=== PATIENT | male | born 1955 | race Caucasian/White ===

== ENCOUNTER → 2023-09-29 | Outpatient (CLI) | payer MEDICARE, OTHER ==
[2023-09-29 11:55] LABS: Protein/Creatinine Ratio,Urine 1.5
[2023-09-29 15:09] LABS: HGB 11.1 g/dL (13.0-17.0); MCH 28.6 pg (27.0-32.0); MCHC 30.8 g/dL (32.0-37.0); MCV 92.8 FL (80.0-97.0); NRBC Per 100 WBC 0 X 10*3/uL (0.00-0.01); Platelet Count 314 X 10*3/uL (140-440); RBC 3.88 X 10*6/uL (4.40-5.60); RDW 16.5 % (11.5-14.5); WBC 7.82 X 10*3/uL (4.50-10.00)
[2023-09-29 15:27] LABS: Appearance,Urine Clear (Clear); Bilirubin,Urine Negative (Negative); Blood,Urine Negative (Negative); Color,Urine Yellow (Yellow); Ketones,Urine Negative (Negative); Nitrite,Urine Negative (Negative); Specific Gravity,Urine 1.017 (1.001-1.030); Urobilinogen,Urine 0.2 E.U./DL
[2023-09-29 15:30] LABS: Bacteria,Urine None Seen (None Seen)
[2023-09-29 15:39] LABS: Magnesium 1.7 mg/dL (1.5-2.4); Phosphorus 3.7 mg/dL (2.4-5.1)
[2023-09-29 15:48] LABS: ALT 12 U/L (10-49); AST 14 U/L (14-35); Albumin 4.4 g/dL (3.8-4.9); Albumin/Globulin Ratio 1.83 Ratio (1.60-3.17); Alkaline Phosphatase 132 U/L (41-126); BUN/Creat Ratio 13.44 Ratio (12.00-20.00); Blood Urea Nitrogen 36.3 mg/dL (9.0-27.0); Calcium 9.6 mg/dL (8.7-10.3); Carbon Dioxide 16.7 mmol/L (21.6-31.8); Chloride 108 mmol/L (96-109); Globulin 2.4 g/dL (1.6-3.3); Glucose 256 mg/dL (70-110); Potassium 6.8 mmol/L (3.5-5.5); Sodium 137 mmol/L (135-145); Total Bilirubin <0.2 mg/dL (0.3-1.2); Total Protein 6.8 g/dL (6.2-8.2)
[2023-09-29 19:04] LABS: Urine Creatinine 65.2 mg/dL (39.0-259.0)
== END | disposition home or self-care (01) ==
LOC: LABWHC1 10:36
PROVIDERS: ATTEND Nurse Practitioner Acute Care
DX: N18.32 Chronic kidney disease, stage 3b (principal)
CPT/HCPCS: 36415; 80053; 81001; 82043; 82570; 83735; 84100; 84156; 85027

== ENCOUNTER → 2023-10-03 | Outpatient (CLI) | payer MEDICARE, OTHER ==
[2023-10-03 17:44] LABS: BUN/Creat Ratio 11.77 Ratio (12.00-20.00); Blood Urea Nitrogen 30.6 mg/dL (9.0-27.0); Carbon Dioxide 18.5 mmol/L (21.6-31.8); Chloride 106 mmol/L (96-109); Glucose 222 mg/dL (70-110); Sodium 139 mmol/L (135-145)
== END | disposition home or self-care (01) ==
LOC: LABWHC1 09:36
PROVIDERS: ATTEND Nurse Practitioner Acute Care
DX: N18.32 Chronic kidney disease, stage 3b (principal)
CPT/HCPCS: 36415; 80048

== ENCOUNTER → 2023-11-11 | Outpatient (CLI) | payer MEDICARE, OTHER ==
[2023-11-11 15:49] LABS: Appearance,Urine Clear (Clear); Bilirubin,Urine Negative (Negative); Blood,Urine Negative (Negative); Color,Urine Yellow (Yellow); Ketones,Urine Negative (Negative); Nitrite,Urine Negative (Negative); Specific Gravity,Urine 1.017 (1.001-1.030); Urobilinogen,Urine 0.2 E.U./DL
[2023-11-11 15:55] LABS: Bacteria,Urine None Seen (None Seen)
[2023-11-11 16:02] LABS: Magnesium 1.6 mg/dL (1.5-2.4); Phosphorus 3.1 mg/dL (2.4-5.1)
[2023-11-11 16:03] LABS: % Iron Saturation 13.64 (15.00-50.00); ALT 11 U/L (10-49); AST 11 U/L (14-35); Albumin/Globulin Ratio 1.82 Ratio (1.60-3.17); Alkaline Phosphatase 105 U/L (41-126); BUN/Creat Ratio 12.73 Ratio (12.00-20.00); Calcium 8.6 mg/dL (8.7-10.3); Carbon Dioxide 18.3 mmol/L (21.6-31.8); Chloride 108 mmol/L (96-109); Globulin 2.2 g/dL (1.6-3.3); Glucose 263 mg/dL (70-110); Iron 33 UG/DL (65-175); Potassium 4.1 mmol/L (3.5-5.5); Sodium 142 mmol/L (135-145); Total Bilirubin 0.2 mg/dL (0.3-1.2); Total Iron Binding Capacity 242 UG/DL (228-460); Total Protein 6.2 g/dL (6.2-8.2); Uric Acid 5.1 mg/dL (3.7-8.7)
[2023-11-11 16:25] LABS: HCT 25.7 % (39.6-50.0); HGB 8.2 g/dL (13.0-17.0); MCH 28.4 pg (27.0-32.0); MCHC 31.9 g/dL (32.0-37.0); MCV 88.9 FL (80.0-97.0); Mean Platelet Volume 10.1 FL (9.5-12.2); NRBC Per 100 WBC 0 X 10*3/uL (0.00-0.01); Platelet Count 239 X 10*3/uL (140-440); RBC 2.89 X 10*6/uL (4.40-5.60); RDW 17.1 % (11.5-14.5)
[2023-11-11 21:41] LABS: Urine Creatinine 86.1 mg/dL (39.0-259.0)
== END ==
LOC: LABWHC1 10:19
PROVIDERS: ATTEND Internal Medicine
DX: N18.32 Chronic kidney disease, stage 3b (principal); D64.9 Anemia, unspecified; N39.0 Urinary tract infection, site not specified; E55.9 Vitamin D deficiency, unspecified; N25.81 Secondary hyperparathyroidism of renal origin; M10.9 Gout, unspecified
CPT/HCPCS: 36415; 80053; 81001; 82043; 82306; 82570; 82728; 83540; 83550; 83735; 83970; 84100; 84550; 85027

== ENCOUNTER 2024-01-12 10:49 | Inpatient (IN) | payer MEDICARE, OTHER ==
[2024-01-12] MEDS: SODIUM CHLORIDE 0.9% 1,000 ML IV ONE ×2 (11:53→15:23)
[2024-01-12] MEDS: HEPARIN SODIUM,PORCINE 10,000 UNIT in SODIUM CHLORIDE 0.9% 1,000 ML IRRIGATION ONE (11:53)
[2024-01-12] MEDS: HEPARIN SODIUM,PORCINE (1 ML) 2,500 UNIT in SODIUM CHLORIDE 0.9% 250 ML IRRIGATION ONE (11:53)
[2024-01-12] MEDS: fentaNYL (PF) 50 MCG/ML 2 ML AMP IVP ONE (12:20)
[2024-01-12] MEDS: MIDAZOLAM 2 MG/2 ML VIAL IVP ONE (12:20)
[2024-01-12] MEDS: LIDOCAINE 1% INJ 10MG/ML (20 ML MDV) SQ ONE (12:25)
[2024-01-12] MEDS: VERAPAMIL SYRINGE (5 MG/10 ML) INTRAARTER ONE (12:26)
[2024-01-12] MEDS: HEPARIN SODIUM 1,000 UN/ML (10ML VL) IVP ONE ×3 (12:31→12:53)
[2024-01-12] MEDS: IOPAMIDOL-370 100ML BTL INJ ONE (13:13)
[2024-01-12] MEDS ORDERED: NITROGLYCERIN SL TABS 0.4 MG TAB SUBLINGUAL PRN (13:34)
[2024-01-12] MEDS ORDERED: MAG HYDROX/AL HYDROX/SIMETH 30 ML CUP PO PRN (13:34)
[2024-01-12] MEDS ORDERED: ZOLPIDEM 5 MG TAB PO PRN (13:34)
[2024-01-12] MEDS ORDERED: RX INFO: IV CONTRAST WAS GIVEN 1 EACH MISC MISCELLANE PRN (13:34)
[2024-01-12] MEDS ORDERED: ATROPINE SULFATE 0.1 MG/ML 10ML SYRINGE IV PRN (13:34)
--- NOTE | 2024-01-12 15:10 | P.PRCINT ---
Percutaneous Coronary Int. - Percutaneous Coronary Intervention Percutaneous Coronary Intervention: PROCEDURES PERFORMED: Right coronary angiography, ultrasound guided arterial access. PCI proximal to mid RCA with a 3.25 x 38mm Xience CHERY, post dilated with a 3.5mm NC balloon INDICATION: NSTEMI CONSENT:I have discussed the risks, benefits and alternative therapies for the above-mentioned procedure and for both sedation/analgesia as well as necessary blood product administration, if indicated, as they pertain to this patient. The patient has indicated understanding and acceptance of the risks and procedures discussed. PROCEDURE: After the risks, benefits and alternatives of the above mentioned procedure explained in detail with the patient, informed consent was obtained. Patient was taken to the catheterization lab and prepped and draped in usual fashion. Ultrasound guidance was used to assess for arterial access. 1% lidocaine was used to anesthetize the right radial artery. A 6-Czech sheath was placed in the right radial artery using modified Seldinger technique and ultrasound guidance. The decision was made to perform PCI of the RCA. A 6-Czech AL 0.5 guide was used to engage the RCA. A 0.014 BMW wire was advanced in the distal RCA. Intravascular ultrasound was performed which showed diffuse disease of the proximal and mid segment with reference vessel 3.25-3.5 mm. Predilation was performed with a 3.0 x 20 noncompliant balloon. Next a 3.25 x 38 mm drug- eluting stent was placed from the proximal to mid RCA. The stent was postdilated with a 3.5 mm noncompliant balloon. Repeat intravascular ultrasound showed excellent stent apposition with 0% residual stenosis. No dissection. Limited angiograms were performed secondary to contrastold. Final angiograms were performed. Preintervention there was 90% stenosis and ARABELLA-3 flow and postintervention there was less than 10% stenosis with ARABELLA 3 flow. The right radial sheath was removed and a TR band was placed with hemostasis achieved. The patient tolerated the procedure well. Patient was transported back to the post catheterization holding area in stable condition. Conscious Sedation: Patient was monitored under the direct supervision of myself for conscious sedation using Versed and fentanyl for a total duration of 39 minutes HEMODYNAMICS: Ao: 165/81 SELECTIVE CORONARY ARTERIOGRAPHY: LEFT MAIN: Not imaged, see separate report. LEFT ANTERIOR DESCENDING CORONARY ARTERY: Not imaged, see separate report. LEFT CIRCUMFLEX CORONARY ARTERY: Not imaged, see separate report. RIGHT CORONARY ARTERY: The right coronary artery is a large caliber vessel which gives off a PDA and PLV branch and is the dominant vessel. There is a long proximal and mid diffuse 40-50% stenosis with more focal 90% mid RCA stenosis. FINAL IMPRESSION: 1. CAD as described above with 90% RCA stenosis 2. S/p PCI proximal to mid RCA with a 3.25 x 38mm Xience CHERY, post dilated with a 3.5mm NC balloon PLAN: 1. Aggressive risk factor modification per most recent ACC/AHA guidelines. 2. Continue dual antiplatelets with aspirin and Plavix for 12 months
[2024-01-12] MEDS: hydrALAZINE HCL 25 MG TAB PO SCH (15:38)
[2024-01-12] MEDS: hydrALAZINE HCL 20 MG/ML 1 ML VIAL IVP SCH (18:00)
[2024-01-12] MEDS: SODIUM CHLORIDE 0.9% 1,000 ML in EMPTY BAG 1 BAG IV SCH (18:00)
[2024-01-12] MEDS: FUROSEMIDE 10 MG/ML 4 ML VIAL IV SCH (19:51)
[2024-01-12] MEDS: ATORVASTATIN 80 MG TAB PO SCH (19:51)
[2024-01-12] MEDS: METOPROLOL TARTRATE 25 MG TAB PO SCH (19:51)
[2024-01-13] MEDS: ASPIRIN 81 MG PO SCH (07:47)
[2024-01-13] MEDS: CLOPIDOGREL 75 MG TAB PO SCH (07:47)
[2024-01-13 07:52] VITALS: RESP 16
[2024-01-13 08:29] LABS: Anisocytosis Slight; HCT 30.5 % (39.0-53.0); HGB 9.7 gm/dL (13.0-17.5); Hypochromasia Slight; MCH 28.3 pg (25.0-35.0); MCV 88.7 fL (80.0-100.0); Mean Platelet Volume 7.9; Platelet Count 297 k/uL (150-450); RBC 3.43 m/uL (4.30-5.90); RDW 18.3 % (11.5-15.5); WBC 13.3 k/uL (3.8-10.6)
[2024-01-13 08:40] LABS: African American GFR (CKD) 32 (>60 ml/min/1.73 sqM); Anion Gap 10 mmol/L; Blood Urea Nitrogen 31 mg/dL (9-20); Calcium 8.9 mg/dL (8.4-10.2); Carbon Dioxide 24 mmol/L (22-30); Chloride 104 mmol/L (98-107); Glucose 247 mg/dL (74-99); Non-African American GFR(CKD) 28 (>60 ml/min/1.73 sqM); Potassium 3.2 mmol/L (3.5-5.1); Sodium 138 mmol/L (137-145)
[2024-01-13] MEDS: FUROSEMIDE 40 MG TAB PO SCH (08:47)
[2024-01-13 08:49] LABS: Band Neutrophils % 1 %; Eosinophils # (M) 0.13 k/uL (0-0.7); Lymphocytes # (M) 1.46 k/uL (1.0-4.8); Metamyelocytes # (M) 0.27 k/uL (0); Metamyelocytes % 2 %; Monocytes # (M) 3.06 k/uL (0-1.0); Myelocytes # (M) 0.13 k/uL (0); Myelocytes % 1 %; Neutrophils % (M) 62 %; Nucleated Red Blood Cells 0 /100 WBC (0-0); Total Cells Counted 200
[2024-01-13] MEDS: hydrALAZINE HCL 25 MG TAB PO SCH (08:49)
[2024-01-13] MEDS: POTASSIUM CHLORIDE ER 20 MEQ TAB.ER PO STA (08:49)
[2024-01-13 11:01] VITALS: BMI 23.6
--- NOTE | 2024-01-13 11:05 | P.NPCON ---
History of Present Illness - Reason for Consult chronic renal failure - History of Present Illness patient is a 68-year-old male with history of type 2 diabetes, hypertension, chronic kidney disease stage IIIB with baseline creatinine around 2 mg/dL secondary to diabetic kidney disease. Patient was admitted to [facility] with complaints of shortness of breath and ruled in for acute non-ST elevation CO. He was also anemic with hemoglobin of 6.9 g/dL. Patient had cardiac catheterization on 01/11/2024 which showed 60-70% diagonal stenosis along with 90% RCA stenosis and 60-70% stenosis in mid circumflex. Patient was transferred to [facility] for coronary stent placement off RCA. Serum creatinine was 2.68 mg/dL on 01/11/2024 at [facility]. Patient has been diuresed. Status post repeat cardiac catheterization and right coronary stent placement on 01/12/2024. Patient denies any significant complaints No shortness of breath or chest pain. He has had good urine output. Serum creatinine is 2.3 mg/dL today. Review of Systems as per HPI Past Medical History Past Medical History: Heart Failure, COPD, Diabetes Mellitus, Hearing Disorder / Deafness, Hyperlipidemia, Hypertension, Myocardial Infarction ([place]), Renal Disease, Respiratory Disorder, Skin Disorder Last Myocardial Infarction Date:: 01/08/2024 History of Any Multi-Drug Resistant Organisms: None Reported Past Surgical History: Heart Catheterization With Stent, Orthopedic Surgery Past Anesthesia/Blood Transfusion Reactions: No Reported Reaction Date of Last Stent Placement:: 01/12/2024 Past Psychological History: No Psychological Hx Reported Smoking Status: Current every day smoker Past Drug Use History: None Reported Medications and Allergies Home Medications Medication Instructions Recorded Confirmed Type Cholecalciferol [Vitamin D3 (25 50 mcg PO BID 01/12/24 01/12/24 History Mcg = 1000 Iu)] Dapagliflozin Propanediol [Farxiga] 5 mg PO DAILY 01/12/24 01/12/24 History Ferrous Sulfate [Feosol] 325 mg PO DAILY 01/12/24 01/12/24 History NIFEdipine XL [Procardia Xl] 30 mg PO DAILY 01/12/24 01/12/24 History NIFEdipine XL [Procardia Xl] 90 mg PO HS 01/12/24 01/12/24 History Patiromer Calcium Sorbitex 16.8 gm PO Q2D 01/12/24 01/12/24 History [Veltassa] calcitrioL 0.25 mcg PO FR 01/12/24 01/12/24 History cloNIDine 0.2 MG/24HR PATCH 1 patch TRANSDERM FR 01/12/24 01/12/24 History [Catapres-TTS] glipiZIDE XL [Glucotrol Xl] 10 mg PO HS 01/12/24 01/12/24 History hydrALAZINE HCL [Apresoline] 50 mg PO BID 01/12/24 01/12/24 History sitaGLIPtin [Januvia] 50 mg PO HS 01/12/24 01/12/24 History Allergies Allergy/AdvReac Type Severity Reaction Status Date / Time amoxicillin Allergy Unknown Verified 01/12/24 17:42 clindamycin Allergy Unknown Verified 01/12/24 17:42 codeine Allergy Unknown Verified 01/12/24 17:42 hydrochlorothiazide Allergy Unknown Verified 01/12/24 17:42 hydrocodone Allergy Unknown Verified 01/12/24 17:42 lisinopril Allergy Unknown Verified 01/12/24 17:42 oxycodone Allergy Unknown Verified 01/12/24 17:42 Penicillins Allergy Unknown Verified 01/12/24 17:42 Physical Exam Vitals: Vital Signs Temp Pulse Pulse Pulse Resp BP BP 01/13/24 07:50 98.3 F 89 16 152/71 01/13/24 04:00 97.8 F 81 15 153/61 01/12/24 23:21 98.0 F 80 16 173/70 01/12/24 19:57 185/75 01/12/24 19:38 98.2 F 92 16 204/73 01/12/24 18:01 85 14 189/118 01/12/24 17:14 98 F 76 14 211/44 01/12/24 16:19 97.8 F 76 14 210/80 01/12/24 15:45 70 16 181/81 01/12/24 15:06 72 16 196/86 01/12/24 14:36 70 16 178/89 01/12/24 14:06 72 16 176/77 01/12/24 13:51 76 16 203/90 01/12/24 13:36 74 16 198/73 01/12/24 13:21 70 20 185/92 01/12/24 11:41 97.6 F 16 193/73 BP Pulse Ox 11/01/24 07:50 96 01/13/24 04:00 98 01/12/24 23:21 93 L 01/12/24 19:57 01/12/24 19:38 93 L 01/12/24 18:01 91 L 01/12/24 17:14 92 L 01/12/24 16:19 92 L 01/12/24 15:45 96 01/12/24 15:06 95 01/12/24 14:36 96 01/12/24 14:06 95 01/12/24 13:51 94 L 01/12/24 13:36 94 L 01/12/24 13:21 95 01/12/24 11:41 201/97 95 Intake and Output 01/12/24 01/13/24 01/13/24 22:59 06:59 14:59 Intake Total 780 490 Output Total 0890 643 5165 Balance -920 -550 -510 Intake: IV 220 10 Invasive Line 1 10 10 Invasive Line 2 10 Oral 560 480 Output: Urine 0951 904 9304 Other: Voiding Method Urinal Urinal Weight 81.647 kg 79.1 kg patient is awake, comfortable, no acute distress. 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 Acute kidney injury ATN nonoliguric and cardiorenal syndrome. Improved with creatinine down from 2.6 on 01/11/2024 to 2.3 today. 2. Chronic kidney disease stage IIIB with baseline creatinine around 2 mg/dL secondary to diabetic kidney disease 3. Acute non-ST elevation CO status post cardiac catheterization on 01/11/2024 and right coronary artery stent placement on 01/12/2024 4. Acute hypoxic respiratory failure from CHF and acute CO with diuresis. 5. Hypertension with CK D stage III B 6. CK D mineral bone disorder maintained on Rocaltrol 7. Hypokalemia secondary to diuretics Plan: patient can be discharged from nephrology standpoint. Follow-up in the office in 1-2 weeks. Continue with current dose of diuretics. Check labs in 1-2 days post discharge. Replace potassiumnext Thank you for the consultation. We will continue to follow the patient with you during his hospitalization.
[2024-01-13 11:32] VITALS: BP 167/72; PULSE 73; TEMP 97.6
--- NOTE | 2024-01-13 12:38 | P.PN ---
Subjective HISTORY OF PRESENT ILLNESS: This is a 68-year-old male who was transferred from [facility] for non-STEMI. Patient underwent cardiac catheterization yesterday with Dr. Caldera with PCI to the proximal to mid RCA. Patient examined this morning at the bedside. Patient currently denies chest pain or pressure. He denies shortness of breath. Creatinine today is 2.33. Patient's baseline near 2.0. Hemoglobin today 9.7. Vital signs are stable. Telemetry reveals sinus mechanism. PHYSICAL EXAM: VITAL SIGNS: Reviewed. GENERAL: Well-developed in no acute distress. NECK: Supple. No JVD or thyromegaly LUNGS: Respirations even and unlabored. Lungs essentially clear to auscultation bilaterally. HEART: Regular rate and rhythm. S1 and S2 heard. Systolic murmur noted. EXTREMITIES: Normal range of motion. No clubbing or cyanosis. Peripheral pulses intact. No lower extremity edema ASSESSMENT: Non-STEMI, status post cardiac catheterization with PCI to the proximal to mid RCA Ischemic cardiomyopathy, 35% Acute on chronic kidney disease Anemia Acute on chronic heart failure with reduced EF, currently euvolemic Hyperlipidemia Mild to moderate mitral regurgitation PLAN: Continue dual antiplatelet therapy with aspirin and Plavix for 12 months Continue high intensity statin with Lipitor. DL goal less than 70. Discontinue IV Lasix. Begin oral Lasix 40 mg daily Add hydralazine 25 mg 3 times a day Patient unable to be on full cardiomyopathy medication secondary to acute kidney injury. Continue to monitor kidney function on outpatient basis to see if patient will be able to be initiated on cardiomyopathy medications. Patient may be discharged home today from a cardiac standpoint Nurse practitioner note has been reviewed by physician. Signing provider agrees with the documented findings, assessment, and plan of care documented by [employer] CLE[employer] M[employer] FEEDER as a scribe. Objective - Vital Signs Vital signs: Vital Signs Temp 97.6 F 01/13/24 11:31 Pulse 73 01/13/24 11:31 Resp 16 01/13/24 11:28 BP 167/72 01/13/24 11:31 Pulse Ox 96 01/13/24 11:28 FiO2 Intake & Output 01/12/24 01/13/24 01/13/24 18:59 06:59 18:59 Intake Total 1820 20 490 Output Total 2250 1000 Balance 1820 -2230 -510 Weight 81.647 kg 79.1 kg 79.1 kg Intake: IV 1020 20 10 Invasive Line 1 10 10 10 Invasive Line 2 10 10 Oral 800 480 Output: Urine 2250 1000 Other: Voiding Method Urinal - Labs CBC & Chem 7: 01/13/24 07:15 01/13/24 07:15 Labs: Abnormal Lab Results - Last 24 Hours (Table) 01/13/24 01/13/24 Range/Units 07:15 07:15 WBC 13.3 H (3.8-10.6) k/uL RBC 3.43 L (4.30-5.90) m/uL Hgb 9.7 L (13.0-17.5) gm/dL Hct 30.5 L (39.0-53.0) % RDW 18.3 H (11.5-15.5) % Neutrophils # (Manual) 8.30 H (1.3-7.7) k/uL Monocytes # (Manual) 3.06 H (0-1.0) k/uL Metamyelocytes # (Man) 0.27 H (0) k/uL Myelocytes # (Manual) 0.13 H (0) k/uL Potassium 3.2 L (3.5-5.1) mmol/L BUN 31 H (9-20) mg/dL Creatinine 2.33 H (0.66-1.25) mg/dL Glucose 247 H (74-99) mg/dL
--- NOTE | 2024-01-13 13:14 | P.HPIM ---
History of Present Illness H&P Date: 01/13/24 History of present illness; patient is a 68-year-old gentleman with past medical history significant for type 2 diabetes, hypertension, chronic kidney disease who was transferred from [facility] for acute NSTEMI. Patient had underwent cardiac cath showing 60-70% diagonal stenosis along with 90% RCA stenosis and 60-70% stenosis in mid circumflex at [facility]. Patient underwent PCI to the proximal to mid RCA. Patient was admitted to internal medicine service REVIEW OF SYSTEMS: CONSTITUTIONAL: No fever, no malaise, no fatigue. HEENT: No recent visual problems or hearing problems. Denied any sore throat. CARDIOVASCULAR: No chest pain, orthopnea, PND, no palpitations, no syncope. PULMONARY: No shortness of breath, no cough, no hemoptysis. GASTROINTESTINAL: No diarrhea, no nausea, no vomiting, no abdominal pain. NEUROLOGICAL: No headaches, no weakness, no numbness. HEMATOLOGICAL: Denies any bleeding or petechiae. GENITOURINARY: Denies any burning micturition, frequency, or urgency. MUSCULOSKELETAL/RHEUMATOLOGICAL: Denies any joint pain, swelling, or any muscle pain. ENDOCRINE: Denies any polyuria or polydipsia. The rest of the 14-point review of systems is negative. PHYSICAL EXAMINATION: GENERAL: The patient is alert and oriented x3, not in any acute distress. Well developed, well nourished. HEENT: Pupils are round and equally reacting to light. EOMI. No scleral icterus. No conjunctival pallor. Normocephalic, atraumatic. No pharyngeal erythema. No thyromegaly. CARDIOVASCULAR: S1 and S2 present. No murmurs, rubs, or gallops. PULMONARY: Chest is clear to auscultation, no wheezing or crackles. ABDOMEN: Soft, nontender, nondistended, normoactive bowel sounds. No palpable organomegaly. MUSCULOSKELETAL: No joint swelling or deformity. EXTREMITIES: No cyanosis, clubbing, or pedal edema. NEUROLOGICAL: Gross neurological examination did not reveal any focal deficits. SKIN: No rashes. Assessment and plan Non-STEMI, status post cardiac catheterization with PCI to the proximal to mid RCA Ischemic cardiomyopathy, 35% Acute on chronic kidney disease Anemia Acute on chronic systolic heart failure Hyperlipidemia Mild to moderate mitral regurgitation Monitor vital signs Monitor CBC Monitor CMP Continue telemetry monitoring status post cardiac catheterization with PCI to the proximal to mid RCA Ordered aspirin and Plavix Strict I's and O's, daily weights Nephrology consulted Cardiology following Labs and medication were reviewed.. Continue same treatment. Continue with symptomatic treatment. Resume home medication. Monitor labs and vitals. DVT and GI prophylaxis. Further recommendations as per clinical course of the pat ient Dictation was produced using [employer] dictation software. please excuse any grammatical, word or spelling errors. Past Medical History Past Medical History: Heart Failure, COPD, Diabetes Mellitus, Hearing Disorder / Deafness, Hyperlipidemia, Hypertension, Myocardial Infarction ([place]), Renal Disease, Respiratory Disorder, Skin Disorder Last Myocardial Infarction Date:: 01/08/2024 History of Any Multi-Drug Resistant Organisms: None Reported Past Surgical History: Heart Catheterization With Stent, Orthopedic Surgery Past Anesthesia/Blood Transfusion Reactions: No Reported Reaction Date of Last Stent Placement:: 01/12/2024 Past Psychological History: No Psychological Hx Reported Smoking Status: Current every day smoker Past Drug Use History: None Reported Medications and Allergies Home Medications Medication Instructions Recorded Confirmed Type Cholecalciferol [Vitamin D3 (25 50 mcg PO BID 01/12/24 01/12/24 History Mcg = 1000 Iu)] Dapagliflozin Propanediol [Farxiga] 5 mg PO DAILY 01/12/24 01/12/24 History Ferrous Sulfate [Feosol] 325 mg PO DAILY 01/12/24 01/12/24 History NIFEdipine XL [Procardia Xl] 30 mg PO DAILY 01/12/24 01/12/24 History NIFEdipine XL [Procardia Xl] 90 mg PO HS 01/12/24 01/12/24 History Patiromer Calcium Sorbitex 16.8 gm PO Q2D 01/12/24 01/12/24 History [Veltassa] calcitrioL 0.25 mcg PO FR 01/12/24 01/12/24 History cloNIDine 0.2 MG/24HR PATCH 1 patch TRANSDERM FR 01/12/24 01/12/24 History [Catapres-TTS] glipiZIDE XL [Glucotrol Xl] 10 mg PO HS 01/12/24 01/12/24 History hydrALAZINE HCL [Apresoline] 50 mg PO BID 01/12/24 01/12/24 History sitaGLIPtin [Januvia] 50 mg PO HS 01/12/24 01/12/24 History Allergies Allergy/AdvReac Type Severity Reaction Status Date / Time amoxicillin Allergy Unknown Verified 01/12/24 17:42 clindamycin Allergy Unknown Verified 01/12/24 17:42 codeine Allergy Unknown Verified 01/12/24 17:42 hydrochlorothiazide Allergy Unknown Verified 01/12/24 17:42 hydrocodone Allergy Unknown Verified 01/12/24 17:42 lisinopril Allergy Unknown Verified 01/12/24 17:42 oxycodone Allergy Unknown Verified 01/12/24 17:42 Penicillins Allergy Unknown Verified 01/12/24 17:42 Physical Exam Vitals: Vital Signs Temp Pulse Pulse Pulse Resp BP BP 01/13/24 11:31 97.6 F 73 167/72 01/13/24 11:28 98.5 F 70 16 174/68 01/13/24 07:50 98.3 F 89 16 152/71 01/13/24 04:00 97.8 F 81 15 153/61 01/12/24 23:21 98.0 F 80 16 173/70 01/12/24 19:57 185/75 01/12/24 19:38 98.2 F 92 16 204/73 01/12/24 18:01 85 14 189/118 01/12/24 17:14 98 F 76 14 211/44 01/12/24 16:19 97.8 F 76 14 210/80 01/12/24 15:45 70 16 181/81 01/12/24 15:06 72 16 196/86 01/12/24 14:36 70 16 178/89 01/12/24 14:06 72 16 176/77 01/12/24 13:51 76 16 203/90 01/12/24 13:36 74 16 198/73 01/12/24 13:21 70 20 185/92 Pulse Ox 01/13/24 11:31 01/13/24 11:28 96 01/13/24 07:50 96 01/13/24 04:00 98 01/12/24 23:21 93 L 01/12/24 19:57 01/12/24 19:38 93 L 01/12/24 18:01 91 L 01/12/24 17:14 92 L 01/12/24 16:19 92 L 01/12/24 15:45 96 01/12/24 15:06 95 01/12/24 14:36 96 01/12/24 14:06 95 01/12/24 13:51 94 L 01/12/24 13:36 94 L 01/12/24 13:21 95 Intake and Output 01/12/24 01/13/24 01/13/24 22:59 06:59 14:59 Intake Total 780 490 Output Total 5056 044 6794 Balance -920 -550 -510 Intake: IV 220 10 Invasive Line 1 10 10 Invasive Line 2 10 Oral 560 480 Output: Urine 6050 210 1466 Other: Voiding Method Urinal Urinal Weight 81.647 kg 79.1 kg 79.1 kg Results CBC & Chem 7: 01/13/24 07:15 01/13/24 07:15 Labs: Abnormal Lab Results - Last 24 Hours (Table) 01/13/24 01/13/24 Range/Units 07:15 07:15 WBC 13.3 H (3.8-10.6) k/uL RBC 3.43 L (4.30-5.90) m/uL Hgb 9.7 L (13.0-17.5) gm/dL Hct 30.5 L (39.0-53.0) % RDW 18.3 H (11.5-15.5) % Neutrophils # (Manual) 8.30 H (1.3-7.7) k/uL Monocytes # (Manual) 3.06 H (0-1.0) k/uL Metamyelocytes # (Man) 0.27 H (0) k/uL Myelocytes # (Manual) 0.13 H (0) k/uL Potassium 3.2 L (3.5-5.1) mmol/L BUN 31 H (9-20) mg/dL Creatinine 2.33 H (0.66-1.25) mg/dL Glucose 247 H (74-99) mg/dL Thrombosis Risk Factor Assmnt - Choose All That Apply Any of the Below Risk Factors Present?: No Other Risk Factors: Yes Each Risk Factor Represents 2 Points: Age 61-74 years Thrombosis Risk Factor Assessment Total Risk Factor Score: 2 Thrombosis Risk Factor Assessment Level: Low Risk
--- NOTE | 2024-01-14 23:11 | HP ---
HISTORY AND PHYSICAL CHIEF COMPLAINT: Shortness of breath and chest pain. HISTORY OF PRESENT ILLNESS: This 68-year-old white male was transferred from [facility] for cardiac cath. He went into the hospital with shortness of breath. He was diagnosed as having COPD, but his troponins were elevated. He also had hypertension. He was seen and evaluated by Cardiology, and arrangements were made for him to be transferred to [facility] for cardiac cath. REVIEW OF SYSTEMS: He is not having any chest pain now. He has had no nausea or vomiting. Past medical history, family history, and personal and social histories are all otherwise unremarkable and can be found in the documents accompanying from [facility]. PHYSICAL EXAMINATION: HEAD, EARS, EYES, NOSE, MOUTH, AND THROAT: Normal. CHEST: Demonstrates poor breath sounds with no rales or rhonchi. CARDIAC: Demonstrates sinus rhythm. ABDOMEN: Soft, nontender. EXTREMITIES: Normal. NEUROLOGICAL: He is intact. ASSESSMENT: He is admitted to the hospital with diagnoses of: 1. Elevated troponin. 2. Exacerbation of chronic obstructive pulmonary disease. PLAN: Cardiac cath. MMODL / IJN: [id number] /
--- NOTE | 2024-01-15 08:18 | P.DS ---
Providers Date of admission: 01/12/24 12:00 Expected date of discharge: 01/14/24 Attending physician: Rafal Arellano Consults: 01/12/24 13:34 Consult Physician Routine Consulting Provider: [facility] Consult Reason/Comments: Post Interventional Patient Do you want consulting provider notified?: Already Contacted 01/12/24 13:44 Consult Physician Routine Consulting Provider: Shelby Roger Consult Reason/Comments: CKD Do you want consulting provider notified?: Yes Primary care physician: Jared Menjivar DO Hospital Course: Discharge diagnoses; Non-STEMI, status post cardiac catheterization with PCI to the proximal to mid RCA Ischemic cardiomyopathy, 35% Acute on chronic kidney disease Anemia Acute on chronic systolic heart failure Hyperlipidemia Mild to moderate mitral regurgitation Hospital course; patient is a 68-year-old gentleman with past medical history significant for type 2 diabetes, hypertension, chronic kidney disease who was transferred from [facility] for acute NSTEMI. Patient had underwent cardiac cath showing 60-70% diagonal stenosis along with 90% RCA stenosis and 60-70% stenosis in mid circumflex at [facility]. Patient underwent PCI to the proximal to mid RCA. Patient was admitted to internal medicine service patient was evaluated by cardiology and nephrology. Patient was doing much better after cardiac cath. Cardiology and nephrology cleared the patient for discharge. PHYSICAL EXAMINATION: GENERAL: The patient is alert and oriented x3, not in any acute distress. Well developed, well nourished. HEENT: Pupils are round and equally reacting to light. EOMI. No scleral icterus. No conjunctival pallor. Normocephalic, atraumatic. No pharyngeal erythema. No thyromegaly. CARDIOVASCULAR: S1 and S2 present. No murmurs, rubs, or gallops. PULMONARY: Chest is clear to auscultation, no wheezing or crackles. ABDOMEN: Soft, nontender, nondistended, normoactive bowel sounds. No palpable organomegaly. MUSCULOSKELETAL: No joint swelling or deformity. EXTREMITIES: No cyanosis, clubbing, or pedal edema. NEUROLOGICAL: Gross neurological examination did not reveal any focal deficits. SKIN: No rashes. Dictation was produced using [employer] dictation software. please excuse any grammatical, word or spelling errors. Patient Condition at Discharge: Good Plan - Discharge Summary Discharge Rx Participant: No New Discharge Prescriptions: New Atorvastatin [Lipitor] 80 mg PO HS 30 Days #30 tab Clopidogrel [Plavix] 75 mg PO DAILY #30 tab hydrALAZINE HCL [Apresoline] 25 mg PO TID 30 Days #90 tab Aspirin 81 mg PO DAILY #30 tab Furosemide [Lasix] 40 mg PO DAILY #30 tab Metoprolol Tartrate [Lopressor] 25 mg PO BID 30 Days #60 tab Continue calcitrioL 0.25 mcg PO FR Cholecalciferol [Vitamin D3 (25 Mcg = 1000 Iu)] 50 mcg PO BID Dapagliflozin Propanediol [Farxiga] 5 mg PO DAILY sitaGLIPtin [Januvia] 50 mg PO HS Ferrous Sulfate [Iron (65 MG Elemental)] 325 mg PO DAILY glipiZIDE XL [Glucotrol XL] 10 mg PO HS NIFEdipine XL [Procardia XL] 90 mg PO HS NIFEdipine XL [Procardia XL] 30 mg PO DAILY Patiromer Calcium Sorbitex [Veltassa] 16.8 gm PO Q2D Discontinued cloNIDine 0.2 MG/24HR PATCH [Catapres-TTS] 1 patch TRANSDERM FR hydrALAZINE HCL [Apresoline] 50 mg PO BID Discharge Medication List Cholecalciferol [Vitamin D3 (25 Mcg = 1000 Iu)] 50 mcg PO BID 01/12/24 [History] Dapagliflozin Propanediol [Farxiga] 5 mg PO DAILY 01/12/24 [History] Ferrous Sulfate [Iron (65 MG Elemental)] 325 mg PO DAILY 01/12/24 [History] NIFEdipine XL [Procardia XL] 30 mg PO DAILY 01/12/24 [History] NIFEdipine XL [Procardia XL] 90 mg PO HS 01/12/24 [History] Patiromer Calcium Sorbitex [Veltassa] 16.8 gm PO Q2D 01/12/24 [History] calcitrioL 0.25 mcg PO FR 01/12/24 [History] glipiZIDE XL [Glucotrol XL] 10 mg PO HS 01/12/24 [History] sitaGLIPtin [Januvia] 50 mg PO HS 01/12/24 [History] Aspirin 81 mg PO DAILY #30 tab 01/13/24 [Rx] Atorvastatin [Lipitor] 80 mg PO HS 30 Days #30 tab 01/13/24 [Rx] Clopidogrel [Plavix] 75 mg PO DAILY #30 tab 01/13/24 [Rx] Furosemide [Lasix] 40 mg PO DAILY #30 tab 01/13/24 [Rx] Metoprolol Tartrate [Lopressor] 25 mg PO BID 30 Days #60 tab 01/13/24 [Rx] hydrALAZINE HCL [Apresoline] 25 mg PO TID 30 Days #90 tab 01/13/24 [Rx] Follow up Appointment(s)/Referral(s): Wilfredo Cui MD [STAFF PHYSICIAN] - 1 Week (Office will call you with an appointment) Discharge Disposition: HOME SELF-CARE
== END 2024-01-13 14:10 | disposition home or self-care (01) | DRG 321 ==
LOC: 3SCARD 12:00
PROVIDERS: ADMIT Hospitalist; ATTEND Hospitalist
PROC: B2111ZZ Fluoroscopy of Multiple Coronary Arteries using Low Osmolar Contrast (ICD-10-PCS; 2024-01-12)
PROC: 027034Z Dilation of Coronary Artery, One Artery with Drug-eluting Intraluminal Device, Percutaneous Approach (ICD-10-PCS; principal; 2024-01-12 13:30)
PROC: B246ZZ3 Ultrasonography of Right and Left Heart, Intravascular (ICD-10-PCS; 2024-01-12 13:30)
DX: I25.10 Atherosclerotic heart disease of native coronary artery without angina pectoris (principal); I21.4 Non-ST elevation (NSTEMI) myocardial infarction; N17.0 Acute kidney failure with tubular necrosis; I50.23 Acute on chronic systolic (congestive) heart failure; J96.01 Acute respiratory failure with hypoxia; I13.0 Hypertensive heart and chronic kidney disease with heart failure and stage 1 through stage 4 chronic kidney disease, or unspecified chronic kidney disease; E87.20 Acidosis, unspecified; T50.2X5A Adverse effect of carbonic-anhydrase inhibitors, benzothiadiazides and other diuretics, initial encounter; E11.22 Type 2 diabetes mellitus with diabetic chronic kidney disease; N18.32 Chronic kidney disease, stage 3b; D64.9 Anemia, unspecified; E78.5 Hyperlipidemia, unspecified; E87.6 Hypokalemia; H91.90 Unspecified hearing loss, unspecified ear; I25.2 Old myocardial infarction; I25.5 Ischemic cardiomyopathy; J44.9 Chronic obstructive pulmonary disease, unspecified; M89.8X9 Other specified disorders of bone, unspecified site; Z79.84 Long term (current) use of oral hypoglycemic drugs; Z79.899 Other long term (current) drug therapy; Z88.1 Allergy status to other antibiotic agents; Z88.5 Allergy status to narcotic agent; Z88.8 Allergy status to other drugs, medicaments and biological substances; Z88.0 Allergy status to penicillin
CPT/HCPCS: 80048; 85025; 92978

== ENCOUNTER → 2024-01-20 | Outpatient (CLI) | payer MEDICARE ==
[2024-01-20 14:44] LABS: Appearance,Urine Clear (Clear); Bilirubin,Urine Negative (Negative); Blood,Urine Negative (Negative); Color,Urine Colorless; Glucose,Urine (UA) 3+ (Negative); Ketones,Urine Negative (Negative); Leukocyte Esterase,Urine Negative (Negative); Mucus,Urine Rare /hpf; Nitrite,Urine Negative (Negative); PH, Urine 5.5 (5.0-8.0); Protein,Urine 1+ (Negative); RBC,Urine <1 /hpf (0-5); Specific Gravity,Urine 1.009 (1.001-1.035); Urobilinogen,Urine <2.0 mg/dL (<2.0); WBC,Urine <1 /hpf (0-5)
[2024-01-20 18:12] LABS: HCT 25.9 % (39.6-50.0); HGB 8.1 g/dL (13.0-17.0); MCH 28.4 pg (27.0-32.0); MCHC 31.3 g/dL (32.0-37.0); MCV 90.9 FL (80.0-97.0); Mean Platelet Volume 10.3 FL (9.5-12.2); NRBC Per 100 WBC 0 X 10*3/uL (0.00-0.01); Platelet Count 332 X 10*3/uL (140-440); RBC 2.85 X 10*6/uL (4.40-5.60); RDW 16.7 % (11.5-14.5); WBC 10.16 X 10*3/uL (4.50-10.00)
[2024-01-20 19:31] LABS: BUN/Creat Ratio 14.17 Ratio (12.00-20.00); Blood Urea Nitrogen 32.6 mg/dL (9.0-27.0); Chloride 109 mmol/L (96-109); Glucose 160 mg/dL (70-110); Magnesium 1.9 mg/dL (1.5-2.4); Potassium 4.2 mmol/L (3.5-5.5); Sodium 145 mmol/L (135-145)
[2024-01-20 19:32] LABS: ALT 13 U/L (10-49); AST 10 U/L (14-35); Albumin 3.9 g/dL (3.8-4.9); Albumin/Globulin Ratio 1.62 Ratio (1.60-3.17); Alkaline Phosphatase 91 U/L (41-126); Calcium 8.6 mg/dL (8.7-10.3); Carbon Dioxide 23.3 mmol/L (21.6-31.8); Globulin 2.4 g/dL (1.6-3.3); Total Bilirubin <0.2 mg/dL (0.3-1.2); Total Protein 6.3 g/dL (6.2-8.2)
[2024-01-20 20:17] LABS: Urine Creatinine 58.3 mg/dL (39.0-259.0)
[2024-01-20 20:58] LABS: Anisocytosis (M) 2+; Elliptocytes 2+; Lymphocytes # (M) 1.52 X 10*3/uL (0.90-5.00); Metamyelocytes % 1 % (0-0); Microcytosis (M) 2+; Monocytes # (M) 0.71 X 10*3/uL (0.20-1.00); Neutrophils # (M) 7.42 X 10*3/uL (1.80-7.70); Neutrophils % (M) 73 %
== END | disposition home or self-care (01) ==
LOC: LABWHC1 13:56
PROVIDERS: ATTEND Internal Medicine
DX: D64.9 Anemia, unspecified (principal); N18.32 Chronic kidney disease, stage 3b; N39.0 Urinary tract infection, site not specified
CPT/HCPCS: 36415; 80053; 81001; 82043; 82570; 83735; 84100; 85025

== ENCOUNTER → 2024-05-23 | Outpatient (CLI) | payer MEDICARE ==
[2024-05-23 18:38] LABS: BUN/Creat Ratio 14.36 Ratio (12.00-20.00); Blood Urea Nitrogen 35.9 mg/dL (9.0-27.0); Calcium 8.5 mg/dL (8.7-10.3); Carbon Dioxide 18.6 mmol/L (21.6-31.8); Chloride 108 mmol/L (96-109); Glucose 430 mg/dL (70-110); Sodium 139 mmol/L (135-145)
== END | disposition home or self-care (01) ==
LOC: LABWHC1 13:02
PROVIDERS: ATTEND Internal Medicine
DX: N18.32 Chronic kidney disease, stage 3b (principal)
CPT/HCPCS: 36415; 80048